=== PATIENT | male | born 1985 | race Caucasian/White ===

== ENCOUNTER 2018-06-25 21:06 | Emergency (ER) | payer SELFPAY ==
[~2018-06-25] VITALS: Ht 175.3 cm; Wt 96.6 kg
[~2018-06-25 21:06] MED LIST: AMOX500 PO; BENZ100A PO; CRUTCH2 UD; HYDACE5 PO; LORA10ER PO; OXYACE5T PO; PROM25 PO; RXALBOI INH; TRAM50 PO
[2018-06-25] MEDS ORDERED: Norco 5-325 Ta1 EACH PO (21:45)
[2018-06-25] MEDS ORDERED: IBUP800 PO (21:45)
[2018-06-25] MEDS ORDERED: CLOBET30L TOP (21:45)
[2018-06-25] MEDS ORDERED: CEPH500 PO (21:45)
== END 2018-06-25 22:03 | disposition home or self-care (01) ==
LOC: ER 21:06
DX: N48.1 Balanitis (principal); F17.200 Nicotine dependence, unspecified, uncomplicated
CPT/HCPCS: 99282

== ENCOUNTER 2018-11-19 16:55 | Emergency (ER) | payer OTHER ==
[~2018-11-19] VITALS: Ht 175.3 cm; Wt 99.8 kg
[~2018-11-19 16:55] MED LIST changes: +CEPH500 PO; +CLOBET30L TOP; +IBUP800 PO; +Norco 5-325 Ta1 EACH PO
== END 2018-11-19 19:56 | disposition home or self-care (01) ==
LOC: ER 16:55
DX: S61.011A Laceration without foreign body of right thumb without damage to nail, initial encounter (principal); W26.0XXA Contact with knife, initial encounter; F17.210 Nicotine dependence, cigarettes, uncomplicated
CPT/HCPCS: 12002; 99282-25

== ENCOUNTER 2018-12-16 22:59 | Emergency (ER) | payer OTHER ==
[~2018-12-16] VITALS: Ht 175.3 cm; Wt 99.8 kg
[2018-12-17] MEDS ORDERED: Robaxin500 MG PO (00:25)
[2018-12-17] MEDS ORDERED: Naprosyn500 MG PO (00:25)
== END 2018-12-17 00:45 | disposition home or self-care (01) ==
LOC: ER 22:59
DX: S29.012A Strain of muscle and tendon of back wall of thorax, initial encounter (principal); F17.210 Nicotine dependence, cigarettes, uncomplicated; X58.XXXA Exposure to other specified factors, initial encounter
CPT/HCPCS: 71046; 99283-25; A9270

== ENCOUNTER 2019-01-11 23:23 | Emergency (ER) | payer OTHER ==
[~2019-01-11] VITALS: Ht 175.3 cm; Wt 99.8 kg
[~2019-01-11 23:23] MED LIST changes: +Naprosyn500 MG PO; +Robaxin500 MG PO
== END 2019-01-12 00:42 | disposition home or self-care (01) ==
LOC: ER 23:23
DX: M79.671 Pain in right foot (principal); M79.674 Pain in right toe(s); F17.210 Nicotine dependence, cigarettes, uncomplicated; Z79.899 Other long term (current) drug therapy
CPT/HCPCS: 73630; 99283-25

== ENCOUNTER → 2019-01-15 | Outpatient (CLI) | payer OTHER ==
[2019-01-18 07:08] LABS: CHLAMYDIA BY NAA Negative (Negative); GONOCOCCUS BY NAA Negative (Negative); TRICH VAG BY NAA Negative (Negative)
== END | disposition home or self-care (01) ==
LOC: LAB SHORT 18:58 → LAB EV 18:58
PROVIDERS: Physician Assistant Medical
DX: R30.0 Dysuria (principal)
CPT/HCPCS: 87086; 87491; 87591; 87661